=== PATIENT | male | born 1990 | race Hispanic/Latino ===

== ENCOUNTER 2025-03-18 21:08 | Emergency (ER) | payer SELFPAY ==
--- NOTE | ~2025-03-18 | XR_ITS ---
EXAMINATION: XR elbow LT min 3V DATE: 03/18/2025 22:15 INDICATION: Left elbow swelling TECHNIQUE: Anteroposterior, two oblique and lateral views of the left elbow were obtained. COMPARISON: None. FINDINGS: Alignment is normal. No fracture. Joint spaces are normal. No erosions. No left elbow joint effusion. Prominent soft tissue swelling posterior to the olecranon. IMPRESSION: 1. No osseous abnormality or evident left elbow joint effusion. 2. Prominent soft tissue and posterior to the olecranon which is in the absence of trauma could be seen with olecranon bursitis. Reviewed, dictated and finalized at location [facility]
[2025-03-18 21:11] VITALS: BP 122/77; PULSE 86; RESP 20; TEMP 36.4; O2SAT 100
--- NOTE | 2025-03-18 22:21 | ED_ITS ---
HPI - Skin/Abscess/Foreign Bdy General Chief complaint: Skin/Abscess/Foreign Body Stated complaint: cyst on L elbow Time Seen by Provider: 03/18/25 21:30 History of Present Illness HPI narrative: Patient is a 35-year-old male who presents to the ER with left elbow swelling. He reports he hurt his elbow approximately 4 months ago after sustaining a fall. Patient reports approximately 1 month ago he poked the site and fluid came out. He reports he tries to poke it every night but has not had any more fluid drained from the site. Patient denies any recent fevers, excessive redness, decreased range of motion. He denies any medical history relevant to this ER visit. Related Data Allergies Allergy/AdvReac Type Severity Reaction Status Date / Time No Known Allergies Allergy Verified 03/18/25 22:26 Review of Systems Review of Systems: All systems reviewed & are unremarkable except as noted in HPI and below Exam Narrative: GENERAL: Well appearing, well-nourished, non-toxic, in no acute distress. HEAD: Normocephalic, atraumatic. NECK: Supple. No adenopathy, no masses. RESPIRATORY: Airway patent, respirations nonlabored. Clear to auscultation bilaterally, no rales, rhonchi, wheezing. CARDIOVASCULAR: Regular rate and rhythm without murmurs, rubs, or gallops. Peripheral pulses 2+ and equal bilaterally. ABDOMINAL: Soft, nontender, nondistended, no hepatosplenomegaly. Normoactive BS. MUSCULOSKELETAL: Moves all extremities. Strength/ROM intact without gross deformities. SKIN: Warm, dry, normal color. No rashes. Left elbow excessive swelling, palpable fluid, no open areas, no visible drainage, no redness NEURO: A&O X3. Speech clear. Cranial nerves II-XII intact. No ataxic movements. PSYCHIATRIC: Appropriate mood and affect. Normal interaction. Course Vital Signs Vital signs: Vital Signs Temperature 36.4 C 03/18/25 21:11 Pulse Rate 86 03/18/25 21:11 Respiratory Rate 20 03/18/25 21:11 Blood Pressure 122/77 03/18/25 21:11 Pulse Oximetry 100 03/18/25 21:11 Temperature 36.4 C 03/18/25 21:11 Pulse Rate 86 03/18/25 21:11 Respiratory Rate 20 03/18/25 21:11 Blood Pressure 122/77 03/18/25 21:11 Pulse Oximetry 100 03/18/25 21:11 MDM MDM Narrative Medical decision making narrative: Patient is a 35-year-old male who presents to the ER with left elbow swelling. He reports he hurt his elbow approximately 4 months ago after sustaining a fall. Patient reports approximately 1 month ago he poked the site and fluid came out. He reports he tries to poke it every night but has not had any more fluid drained from the site. Patient denies any recent fevers, excessive redness, decreased range of motion. He denies any medical history relevant to this ER visit. Labs Ordered: None necessary Imaging Ordered: Left elbow x-ray Medications Ordered: Toradol 60 mg IM Results: Patient's left elbow x-ray indicates no evidence of acute fracture dislocation Diagnosis: Left elbow bursitis Patient Education/Shared MDM: Results of imaging shared with patient. He will be given a dose of Toradol IM here in the ER and have his elbow wrapped with an Bol[place]ar wrap. Pt will be discharged home with a prescription for ibuprofen 800 mg. Strict return precautions provided. Patient verbalized understanding and is in agreement with plan. Vital signs stable at time of discharge. All questions answered. Differential Diagnosis Differential Diagnosis: Bursitis, abscess, left elbow fracture Imaging Data Attestation: I personally reviewed and interpreted this imaging study as follows: Radiologist's impression: Patient's x-ray indicates no acute osseous abnormalities. Discharge Plan Discharge Clinical Impression: Bursitis Patient Disposition: Home Condition: Stable Instructions: Antibiotic Form, Elbow Bursitis (ED) Additional Instructions: Please return to the ER with any worsening symptoms. Follow-up with primary care provider for further evaluation. Please use an Bol[place] wrap to keep the area compressed. DO NOT TRY TO POP YOUR BURSITIS, as this will lead to infection. You may take ibuprofen 800 mg every 8 hours as needed for pain control and swelling. Patient Language: [place] Prescriptions: New ibuprofen 800 mg tablet 800 mg PO TID PRN (Reason: pain) Qty: 30 0RF Follow-up/Referrals: Lilliana Machado DO [Physician, Family Practice] PHYSICIAN,PEDIATRICIAN ACTIVE PRACTICE [Primary Care Provider, Internal Medicine] Time of Disposition: 23:10
[2025-03-18] MEDS: KETOROLAC (*BKC) 60 MG/2 ML VIAL IM (22:30)
[2025-03-18 23:25] VITALS: BP 126/71; PULSE 81; RESP 19; TEMP 36.6; O2SAT 99
[2025-03-18 23:30] VITALS: BP 126/71; PULSE 81; RESP 19; TEMP 36.6; O2SAT 99
== END 2025-03-18 23:34 | disposition home or self-care (01) ==
PROVIDERS: Emergency Provider Registered Nurse
DX: M71.9 Bursopathy, unspecified (principal)
CPT/HCPCS: 73080; 96372; 99283; J1885